=== PATIENT | female | born 1985 | race Asian ===

== ENCOUNTER 2019-03-17 11:52 | Outpatient (CLI) | payer MEDICAID | END 2019-03-17 14:05 | disposition home or self-care (01) | LOC: OBT 11:52 → L-D 11:53 → OBT 14:05 | DX: O26.843 Uterine size-date discrepancy, third trimester (principal); Z3A.39 39 weeks gestation of pregnancy | CPT/HCPCS: 76815; 76818 ==

== ENCOUNTER 2019-03-18 05:30 | Inpatient (IN) | payer MEDICAID ==
[2019-03-18] MEDS ORDERED: MISOPROSTOL 200 MCG TAB PR ×2 (06:30→09:00)
[2019-03-18] MEDS ORDERED: CEFAZOLIN 2 GM/50 ML (PMX) 50 ML IVPB (06:30)
[2019-03-18] MEDS ORDERED: METHYLERGONOVINE 0.2 MG INJ IM ×2 (06:30→09:00)
[2019-03-18] MEDS ORDERED: CARBOPROST 250 MCG INJ IM ×2 (06:30→09:00)
[2019-03-18] MEDS ORDERED: OXYTOCIN 30 UNITS/LR 500 ML IV ×2 (06:30→09:00)
[2019-03-18 06:48] LABS: ADD MAN DIFF? NO
[2019-03-18 06:53] LABS: WHITE BLOOD COUNT 10.9 10^3/ul (4.8-10.8)
[2019-03-18 06:53] LABS: BASOPHILS % 0.3 % (0.0-2.0); EOSINOPHILS # 0.1 10^3/ul (0.0-0.5); EOSINOPHILS % 0.8 % (0.0-7.0); HEMOGLOBIN 12.1 g/dl (12.0-16.0); LYMPHOCYTES # 2.1 10^3/ul (0.8-2.9); LYMPHOCYTES % 19.6 % (15.0-51.0); MEAN CORPUSCULAR HEMOGLOBIN 28.1 pg (29.0-33.0); MEAN CORPUSCULAR HGB CONC 32.7 g/dl (32.0-37.0); MEAN CORPUSCULAR VOLUME 85.8 fl (82.0-101.0); MEAN PLATELET VOLUME 9.7 fl (7.4-10.4); MONOCYTE # 0.7 10^3/ul (0.3-0.9); MONOCYTES % 6.4 % (0.0-11.0); NEUTROPHIL # 7.8 10^3/ul (1.6-7.5); NEUTROPHILS % 71.7 % (39.0-77.0); PLATELET COUNT 311 10^3/UL (140-415); RED BLOOD COUNT 4.31 10^6/ul (4.20-5.40); RED CELL DISTRIBUTION WIDTH 14.6 % (11.5-14.5)
[2019-03-18] MEDS: LACTATED RINGER'S 1,000 ML IV (06:53)
[2019-03-18 07:20] LABS: INR 0.94; PARTIAL THROMBOPLASTIN TIME 27.5 Sec (23.0-35.0); PROTIME 12.7 Sec (11.9-14.9)
[2019-03-18] MEDS: ONDANSETRON 4 MG INJ IV (07:25)
[2019-03-18] MEDS: CITRIC ACID/NA CITRATE 30 ML CUP PO (07:25)
[2019-03-18] MEDS: CEFAZOLIN 2 GM/50 ML (PMX) 50 ML IVPB (07:30)
[2019-03-18] MEDS ORDERED: OXYTOCIN 30 UNITS/LR 500 ML BAG IV (07:36)
[2019-03-18] MEDS ORDERED: PHENYLephrine (100 MCG/ML) 10ML SYG (07:37)
[2019-03-18] MEDS ORDERED: morphine SULFATE/PF (10 MG/10 ML) INJ (07:37)
[2019-03-18] MEDS ORDERED: OXYTOCIN 10 UNIT INJ (07:37)
[2019-03-18 07:47] LABS: HEPATITIS B SURFACE ANTIGEN NEGATIVE (NEGATIVE)
[2019-03-18] MEDS ORDERED: KETOROLAC 30 MG INJ (08:09)
[2019-03-18] MEDS ORDERED: DEXAMETHASONE 4 MG/ML 1 ML INJ (08:09)
[2019-03-18] MEDS ORDERED: METOCLOPRAMIDE 10 MG INJ (08:09)
[2019-03-18] MEDS ORDERED: EPHEDrine 25 MG/5 ML SYG (08:21)
[2019-03-18] MEDS ORDERED: KETOROLAC 30 MG INJ IV (09:00)
[2019-03-18] MEDS ORDERED: NACL 0.9% 3 ML SYG IV (09:00)
[2019-03-18] MEDS ORDERED: NALBUPHINE HCL (10 MG/1 ML) INJ IV (09:00)
[2019-03-18] MEDS ORDERED: ACETAMINOPHEN 500 MG TAB PO (09:00)
[2019-03-18] MEDS ORDERED: HYDROmorphONE 0.5 MG/0.5 ML SYG IV ×2 (09:00)
[2019-03-18] MEDS ORDERED: NALOXONE (0.4 MG/ML) INJ IV (09:00)
[2019-03-18] MEDS ORDERED: FENTAnyl 50 MCG/ML VIAL IV ×2 (09:00)
[2019-03-18] MEDS ORDERED: ALBUMIN HUMAN 5% 250 ML IV (09:00)
[2019-03-18] MEDS ORDERED: HYDROCODONE/APAP (5/325) TAB PO (09:00)
[2019-03-18] MEDS ORDERED: METOCLOPRAMIDE 10 MG INJ IV (09:00)
[2019-03-18] MEDS ORDERED: morphine 2 MG INJ IV ×2 (09:00)
[2019-03-18] MEDS ORDERED: OXYCODONE/ACETAMINOPHEN (5/325) TAB PO ×2 (09:00)
[2019-03-18] MEDS ORDERED: EPHEDrine 25 MG/5 ML SYG IV (09:00)
[2019-03-18] MEDS ORDERED: HYDROmorphONE 1 MG/5 ML IV SYRINGE IV ×2 (09:00)
[2019-03-18] MEDS ORDERED: ONDANSETRON 4 MG INJ IV ×2 (09:00)
[2019-03-18] MEDS: DIPHENHYDRAMINE 50 MG INJ IV (09:48)
[2019-03-18] MEDS: OXYTOCIN 30 UNITS/LR 500 ML IV ×2 (10:59→12:56)
[2019-03-18] MEDS: IBUPROFEN 800 MG TAB PO ×2 (12:56→22:00)
[2019-03-18 15:20] LABS: RAPID PLASMA REAGIN NONREACTIVE (NR)
[2019-03-19] MEDS: LACTATED RINGER'S 1,000 ML IV (03:24)
[2019-03-19 05:11] LABS: ADD MAN DIFF? NO
[2019-03-19 05:13] LABS: BASOPHIL # 0.1 10^3/ul (0.0-0.1); BASOPHILS % 0.3 % (0.0-2.0); EOSINOPHILS # 0.1 10^3/ul (0.0-0.5); EOSINOPHILS % 0.6 % (0.0-7.0); HEMATOCRIT 29.5 % (37.0-47.0); HEMOGLOBIN 9.8 g/dl (12.0-16.0); LYMPHOCYTES # 2.9 10^3/ul (0.8-2.9); LYMPHOCYTES % 17.7 % (15.0-51.0); MEAN CORPUSCULAR HEMOGLOBIN 28.4 pg (29.0-33.0); MEAN CORPUSCULAR HGB CONC 33.2 g/dl (32.0-37.0); MEAN CORPUSCULAR VOLUME 85.5 fl (82.0-101.0); MEAN PLATELET VOLUME 9.7 fl (7.4-10.4); MONOCYTES % 6.2 % (0.0-11.0); NEUTROPHIL # 12.2 10^3/ul (1.6-7.5); NEUTROPHILS % 74.3 % (39.0-77.0); PLATELET COUNT 247 10^3/UL (140-415); RED BLOOD COUNT 3.45 10^6/ul (4.20-5.40); RED CELL DISTRIBUTION WIDTH 14.4 % (11.5-14.5)
[2019-03-19 05:13] LABS: WHITE BLOOD COUNT 16.3 10^3/ul (4.8-10.8)
[2019-03-19] MEDS: LANOLIN HPA 1 PKT TOP (09:37)
[2019-03-19] MEDS: FERROUS SULFATE (EC) 325 MG TAB PO ×2 (09:37→21:33)
[2019-03-19] MEDS: IBUPROFEN 800 MG TAB PO ×2 (13:32→21:33)
[2019-03-20 05:35] LABS: ADD MAN DIFF? NO
[2019-03-20] MEDS: IBUPROFEN 800 MG TAB PO ×3 (05:38→21:45)
[2019-03-20 05:42] LABS: WHITE BLOOD COUNT 13.2 10^3/ul (4.8-10.8)
[2019-03-20 05:42] LABS: BASOPHIL # 0.1 10^3/ul (0.0-0.1); BASOPHILS % 0.4 % (0.0-2.0); EOSINOPHILS # 0.2 10^3/ul (0.0-0.5); EOSINOPHILS % 1.3 % (0.0-7.0); HEMATOCRIT 29.8 % (37.0-47.0); HEMOGLOBIN 9.8 g/dl (12.0-16.0); LYMPHOCYTES # 2.6 10^3/ul (0.8-2.9); LYMPHOCYTES % 19.6 % (15.0-51.0); MEAN CORPUSCULAR HEMOGLOBIN 28.2 pg (29.0-33.0); MEAN CORPUSCULAR HGB CONC 32.9 g/dl (32.0-37.0); MEAN CORPUSCULAR VOLUME 85.9 fl (82.0-101.0); MEAN PLATELET VOLUME 9.7 fl (7.4-10.4); MONOCYTE # 0.8 10^3/ul (0.3-0.9); MONOCYTES % 6.3 % (0.0-11.0); NEUTROPHIL # 9.5 10^3/ul (1.6-7.5); NEUTROPHILS % 71.7 % (39.0-77.0); PLATELET COUNT 264 10^3/UL (140-415); RED BLOOD COUNT 3.47 10^6/ul (4.20-5.40); RED CELL DISTRIBUTION WIDTH 14.6 % (11.5-14.5)
[2019-03-20] MEDS: FERROUS SULFATE (EC) 325 MG TAB PO ×2 (09:42→21:45)
[2019-03-20] MEDS: LANOLIN HPA 1 PKT TOP (09:42)
[2019-03-20] MEDS: OXYCODONE/ACETAMINOPHEN (5/325) TAB PO ×2 (16:31→23:41)
[2019-03-21] MEDS: IBUPROFEN 800 MG TAB PO (05:28)
[2019-03-21] MEDS: OXYCODONE/ACETAMINOPHEN (5/325) TAB PO ×2 (05:28→12:07)
[2019-03-21] MEDS: FERROUS SULFATE (EC) 325 MG TAB PO (08:51)
[2019-03-21] MEDS: LANOLIN HPA 1 PKT TOP (12:07)
== END 2019-03-21 13:58 | disposition home or self-care (01) | DRG 788 ==
LOC: L-D 05:30 → PP1 03-20 12:42 → L-D 07:34 → MS1 12:17
PROVIDERS: Obstetrics & Gynecology
PROC: 10D00Z1 Extraction of Products of Conception, Low, Open Approach (ICD-10-PCS; principal; 2019-03-18)
DX: O32.1XX0 Maternal care for breech presentation, not applicable or unspecified (principal); Z3A.39 39 weeks gestation of pregnancy; Z37.0 Single live birth
CPT/HCPCS: 85025; 85610; 85730; 86592; 86850; 86900; 86901; 87340; 99464